=== PATIENT | male | born 1950 ===

== ENCOUNTER 2021-02-07 12:58 | Inpatient (IN) | payer OTHER ==
[~2021-02-07] VITALS: Ht 167.6 cm; Wt 94.3 kg
[~2021-02-07 12:58] MED LIST: AMBIEN10 MG; ENBREL50 MG/M1; METHOTREXATE2.5 MG; TUSSI PRES-B L120 M1 PO; ZESTRIL20 MG; ZITHROMAX TRI-500 MG PO
[2021-02-07] MEDS ORDERED: MILLIPRED5 MG (13:18)
[2021-02-08] MEDS ORDERED: ATORVASTATIN CA10 MG (11:51)
[2021-02-08] MEDS ORDERED: ESTAZOLAM2 MG (11:51)
[2021-02-08] MEDS ORDERED: VENLAFAXINE H37.5 MG (11:51)
[2021-02-08] MEDS ORDERED: METFORMIN HCL500 M4 (11:52)
[2021-02-13] MEDS ORDERED: PEPCID AC20 MG PO (18:07)
[2021-02-13] MEDS ORDERED: MULTI VITAMIN1 EACH (18:08)
[2021-02-15] MEDS ORDERED: ZESTRIL20 MG (07:48)
== END 2021-02-13 20:39 | disposition home or self-care (01) | DRG 866 ==
LOC: ER 12:58 → SEC-K 21:04 → MEDJ 02-08 17:22
PROVIDERS: ADMIT Internal Medicine Cardiovascular Disease; ATTEND Internal Medicine Cardiovascular Disease
PROC: BW40ZZZ Ultrasonography of Abdomen (ICD-10-PCS; 2021-02-08)
PROC: 30233R1 Transfusion of Nonautologous Platelets into Peripheral Vein, Percutaneous Approach (ICD-10-PCS; principal; 2021-02-11)
DX: A90 Dengue fever [classical dengue] (principal); D69.6 Thrombocytopenia, unspecified; E86.0 Dehydration; I10 Essential (primary) hypertension; E78.00 Pure hypercholesterolemia, unspecified; Z20.822 Contact with and (suspected) exposure to COVID-19

== ENCOUNTER 2021-02-15 10:27 | Outpatient (CLI) | payer OTHER | END 2021-02-15 10:28 | disposition home or self-care (01) | LOC: LAB 10:27 | PROVIDERS: ATTEND Internal Medicine Cardiovascular Disease | DX: D69.2 Other nonthrombocytopenic purpura (principal) ==

== ENCOUNTER → 2021-02-15 | Emergency (ER) | payer OTHER ==
[~2021-02-15] VITALS: Ht 188 cm; Wt 90.7 kg
[~2021-02-15] MED LIST changes: +ATORVASTATIN CA10 MG; +ESTAZOLAM2 MG; +METFORMIN HCL500 M4; +MILLIPRED5 MG; +MULTI VITAMIN1 EACH; +PEPCID AC20 MG PO; +VENLAFAXINE H37.5 MG
== END | disposition left against medical advice (07) ==
LOC: ER 07:28
DX: Z53.20 Procedure and treatment not carried out because of patient's decision for unspecified reasons (principal)

== ENCOUNTER 2022-08-06 09:44 | Outpatient (CLI) | payer OTHER | END 2022-08-06 09:48 | disposition home or self-care (01) | LOC: RAD 09:44 | PROVIDERS: ATTEND Internal Medicine Cardiovascular Disease | DX: M25.551 Pain in right hip (principal); M54.50 Low back pain, unspecified ==

== ENCOUNTER 2022-08-28 09:04 | Outpatient (CLI) | payer OTHER | END 2022-08-28 09:17 | disposition home or self-care (01) | LOC: MRI 09:04 | PROVIDERS: ATTEND Internal Medicine Cardiovascular Disease | DX: M54.40 Lumbago with sciatica, unspecified side (principal) | CPT/HCPCS: 72148 ==

== ENCOUNTER 2022-12-24 07:23 | Outpatient (CLI) | payer OTHER | END 2022-12-24 07:29 | disposition home or self-care (01) | LOC: RAD 07:23 | DX: M50.30 Other cervical disc degeneration, unspecified cervical region (principal); M54.14 Radiculopathy, thoracic region; M47.9 Spondylosis, unspecified; M43.07 Spondylolysis, lumbosacral region; M50.322 Other cervical disc degeneration at C5-C6 level; M54.16 Radiculopathy, lumbar region ==

== ENCOUNTER 2023-10-21 07:47 | Outpatient (CLI) | payer OTHER | END 2023-10-21 07:58 | disposition home or self-care (01) | LOC: MRI 07:47 | PROVIDERS: ATTEND Internal Medicine Cardiovascular Disease | DX: M11.251 Other chondrocalcinosis, right hip (principal); M51.46 Schmorl's nodes, lumbar region | CPT/HCPCS: 72149; 73722; Q9965; 72158; 73723 ==

== ENCOUNTER 2024-12-13 15:38 | Outpatient (CLI) | payer OTHER | END 2024-12-13 15:43 | disposition home or self-care (01) | LOC: RAD 15:38 | PROVIDERS: ATTEND Internal Medicine Cardiovascular Disease | DX: M79.671 Pain in right foot (principal) ==

== ENCOUNTER 2025-01-12 11:54 | Outpatient (CLI) | payer OTHER | END 2025-01-12 11:58 | disposition home or self-care (01) | LOC: RAD 11:54 | PROVIDERS: ATTEND Internal Medicine Rheumatology | DX: M05.79 Rheumatoid arthritis with rheumatoid factor of multiple sites without organ or systems involvement (principal) ==